=== PATIENT | female | born 1980 | race Two or more races ===

== ENCOUNTER 2022-09-03 16:08 | Emergency (ER) | payer MEDICAID ==
[~2022-09-03] VITALS: Ht 160 cm; Wt 112.0 kg
[2022-09-03 16:30] VITALS: BP 134/78
[2022-09-03 18:01] LABS: Basophils # (auto) 0 10 ^3/uL (0-0.2); Basophils % (auto) 0.3 % (0.0-2.0); Eosinophils # (auto) 0.1 10 ^3/uL (0-0.8); Hemoglobin 10.8 g/dL (12.2-16.2); Lymphocytes # (auto) 1.7 10 ^3/uL (0.4-5.4); Lymphocytes % (auto) 21.9 % (10.0-50.0); Mean Corpuscular Hgb Conc. 30.5 g/dL (32.0-36.0); Neutrophils # (auto) 5.5 10 ^3/uL (1.6-8.6); Red Cell Distribution Width 18.5 % (11.8-14.3)
[2022-09-03 18:03] LABS: Eosinophils % (auto) 1.5 % (0.0-7.0); Hematocrit 35.4 % (36.0-46.0); Mean Corpuscular Hemoglobin 21.9 pg (28.0-32.0); Monocytes # (auto) 0.5 10 ^3/uL (0-1.3); Monocytes % (auto) 6.5 % (0.0-12.0); Neutrophils % (auto) 69.8 % (37.0-80.0); Nucleated Red Blood Cells % 0.1 %; Red Blood Cells 4.92 10^6/uL (4.0-5.20); White Blood Cell 7.8 10^3/uL (4.4-10.8)
[2022-09-03 18:20] LABS: Albumin 3.6 g/dL (3.4-5.0); BUN/Creatinine Ratio 17.3; Calcium 8.5 mg/dL (8.5-10.1); Potassium 3.7 mmol/L (3.5-5.1)
[2022-09-03 18:23] LABS: Bilirubin, Total 0.4 mg/dL (0.2-1.0)
== END 2022-09-04 00:20 | disposition left against medical advice (07) ==
LOC: ER 16:08
DX: N93.8 Other specified abnormal uterine and vaginal bleeding (principal); M54.50 Low back pain, unspecified
CPT/HCPCS: 36415; 80053; 84702; 85025

== ENCOUNTER 2022-10-09 10:43 | Emergency (ER) | payer MEDICAID ==
[~2022-10-09] VITALS: Ht 160 cm; Wt 101.8 kg
[2022-10-09 12:08] VITALS: BP 138/86
[2022-10-09] MEDS ORDERED: ALBUTEROL SULF 2.5 MG/0.5ML(0.5%) NEB SOLN NEB ONE (14:15)
[2022-10-09] MEDS ORDERED: ACETAMINOPHEN 325 MG TAB PO ONE (14:15)
[2022-10-09] MEDS ORDERED: IPRATROPIUM BROM 0.5 MG/2.5ML INH SOL NEB ONE (14:15)
[2022-10-09] MEDS ORDERED: methylPREDNISolone SOD SUCC 125 MG/2 ML VL IM ONE (14:30)
[2022-10-09] MEDS ORDERED: ALBUAER3 IN (15:30)
[2022-10-09] MEDS ORDERED: PRED20TA2 PO (15:30)
== END 2022-10-09 15:37 | disposition home or self-care (01) ==
LOC: ER 10:43
DX: J06.9 Acute upper respiratory infection, unspecified (principal); Z90.49 Acquired absence of other specified parts of digestive tract; Z20.822 Contact with and (suspected) exposure to COVID-19
CPT/HCPCS: 36415; 71046; 87426; 87804; 94640; 96372; 99284; J2930; J7644

== ENCOUNTER 2023-01-24 19:23 | Emergency (ER) | payer MEDICAID ==
[~2023-01-24] VITALS: Ht 160 cm; Wt 104.4 kg
[~2023-01-24 19:23] MED LIST: ALBUAER3 IN; PRED20TA2 PO
[2023-01-24 20:00] LABS: Basophils # (auto) 0 10 ^3/uL (0-0.2); Basophils % (auto) 0.4 % (0.0-2.0); Eosinophils # (auto) 0.2 10 ^3/uL (0-0.8); Eosinophils % (auto) 2.6 % (0.0-7.0); Hematocrit 35.5 % (36.0-46.0); Hemoglobin 11.2 g/dL (12.2-16.2); Lymphocytes % (auto) 31.4 % (10.0-50.0); Mean Corpuscular Hgb Conc. 31.6 g/dL (32.0-36.0); Mean Corpuscular Volume 72.6 fL (80.0-100.0); Monocytes # (auto) 0.4 10 ^3/uL (0-1.3); Monocytes % (auto) 5.8 % (0.0-12.0); Neutrophils # (auto) 3.9 10 ^3/uL (1.6-8.6); Neutrophils % (auto) 59.8 % (37.0-80.0); Nucleated Red Blood Cells % 0.1 %; Red Blood Cells 4.88 10^6/uL (4.0-5.20); Red Cell Distribution Width 17.9 % (11.8-14.3); White Blood Cell 6.5 10^3/uL (4.4-10.8)
[2023-01-24 20:17] LABS: INR 0.96 (0.9-1.15); Partial Thromboplastin Time 26.5 sec (24.6-33.4)
[2023-01-24 20:27] LABS: Albumin 3.7 g/dL (3.4-5.0); BUN/Creatinine Ratio 19.7; Bilirubin, Total 0.5 mg/dL (0.2-1.0); Magnesium 1.9 mg/dL (1.6-2.6); Potassium 3.8 mmol/L (3.5-5.1); Total Protein 7.5 g/dL (6.4-8.2)
[2023-01-25 04:51] VITALS: BP 124/73
== END 2023-01-25 05:55 | disposition home or self-care (01) ==
LOC: ER 19:23
DX: R07.89 Other chest pain (principal); R74.01 Elevation of levels of liver transaminase levels; D64.9 Anemia, unspecified; Z90.49 Acquired absence of other specified parts of digestive tract; Z98.890 Other specified postprocedural states
CPT/HCPCS: 36415; 71046; 80053; 83735; 83880; 84484; 85025; 85610; 85730; 93005

== ENCOUNTER 2024-11-30 08:02 | Inpatient (IN) | payer MEDICAID ==
[~2024-11-30] VITALS: Ht 160 cm; Wt 114.8 kg
[2024-11-30 08:24] LABS: Urine Bacteria None Seen /hpf (None Seen)
[2024-11-30 08:40] LABS: Urine Blood 1+ /uL (Negative); Urine Clarity Clear (Clear); Urine Color Light-Yellow (Yellow); Urine Mucus FEW (None Seen); Urine Protein, UAD Negative (Negative); Urine Specific Gravity 1.023 (1.001-1.035); Urine Squamous Epithelial Cell FEW /hpf (<5); Urine Urobilinogen Normal (Negative); Urine WBC 1 /hpf (0 - 5); Urine pH 6.5 (5.0-9.0)
[2024-11-30 10:42] VITALS: PULSE 71; RESP 16; O2SAT 98
--- NOTE | 2024-11-30 10:50 | ED.PDOC ---
GI ASSESSMENT HPI Comments 44-year-old female with no PMHx presents with a chief complaint of abdominal pain x onset last night with associated nausea. Patient states that her pain is localized to her RLQ, radiates diffusely and to her back, and describes as aching/cramping sensation. Patient reports that she has had this pain before in the past and was evaluated via ultrasound and states that her "IUD was in the endometrial cavity". Patient denies being followed-up with by her PCP. Patient endorses nausea, but denies any active vomiting or diarrhea. Patient denies rectal bleeding, or hematemesis. No other symptoms or modifying factors present at this time. Chief Complaint: Abdominal Pain Time Seen by MD: 10:41 Primary Care Provider: NONE Reviewed Notes: Medications, Allergies Allergies: Coded Allergies: NO KNOWN ALLERGIES (Unverified , 09/03/22) Home Meds Active Scripts Albuterol Sulfate (VENTOLIN MDI) 90 Mcg Ih, 90 MCG IN PRN, #1 INH 0 Refills 2 inhalations every 4 to 6 hours as needed Prov:MAY OLIVIA 10/09/22 Prednisone (Prednisone) 20 Mg Tab, 20 MG PO BID for 5 Days, #10 TAB 0 Refills Prov:MAY OLIVIA 10/09/22 Information Source: Patient Mode of Arrival: Ambulatory Timing: Days Duration: Intermittent Prehospital treatment: None Quality: Aching Vomitus: None Stool: Normal Severity: Moderate Recent: None Recent Hx of: None Pain Location: RLQ Associated sign and symptoms: Nausea, Abdominal Pain Past Medical History PAST MEDICAL HISTORY: Denies Surgical History: Cholecystectomy, BUSINESS SUPPORT SPECIALIST History: Denies all BUSINESS SUPPORT SPECIALIST Hx Family History Family History: Reviewed,noncontributory to illness Social History Smoker: Non-Smoker Alcohol: Denies ETOH Use Drugs: Denies Drug Use Lives In: Home Constitutional: denies: chills, diaphoresis, fatigue, fever, malaise, sweats, weakness, others EENTM: denies: blurred vision, double vision, ear bleeding, ear discharge, ear drainage, ear pain, ear ringing, eye pain, eye redness, hearing loss, mouth pain, mouth swelling, nasal discharge, nose bleeding, nose congestion, nose pain, photophobia, tearing, throat pain, throat swelling, voice changes, others Respiratory: denies: cough, hemoptysis, orthopnea, SOB at rest, shortness of breath, SOB with excertion, stridor, wheezing, others Cardiovascular: denies: chest pain, dizzy spells, diaphoresis, Dyspnea on exertion, edema, irregular heart beat, left arm pain, lightheadedness, palpita tions, PND, syncope, others Gastrointestinal: reports: abdominal pain, nausea; denies: abdomen distended, blood streaked bowels, constipated, diarrhea, dysphagia, difficulty swallowing, hematemesis, melena, poor appetite, poor fluid intake, rectal bleeding, rectal pain, vomiting, others Genitourinary: denies: abnormal vagina bleeding, burning, dyspareunia, dysuria, flank pain, frequency, hematuria, incontinence, pain, , vagina discharge, urgency, others Neurological: denies: dizziness, fainting, headache, left sided numbness, left sided weakness, numbness, paresthesia, pre-existing deficit, right sided numbness, right sided weakness, seizure, speech problems, tingling, tremors, weakness, others Musculoskeletal: denies: back pain, gout, joint pain, joint swelling, muscle pain, muscle stiffness, neck pain, others Integumetry: denies: bruises, change in color, change in hair/nails, dryness, laceration, lesions, lumps, rash, wounds, others Allergic/Immunocompromised: denies: Difficulty Healing, Frequent Infections, Hives, Itching, others Hematologic/Lymphatic: denies: anemia, blood clots, easy bleeding, easy bruising, swollen glands, others Endocrine: denies: excessive hunger, excessive sweating, excessive thirst, excessive urination, flushing, intolerance to cold, intolerance to heat, unexpla ined weight gain, unexplained weight loss, others Psychiatric: denies: anxiety, bipolar disorder, depression, hopeless, panic disorder, schizophrenia, sleepless, suicidal, others All Other Systems: Reviewed and Negative Physical Exam General Appearance: Mild Distress, Obese HEENT: Other (Unremarkable) Neck: Full Range of Motion, Normal Inspection Respiratory: Lungs Clear, No Accessory Muscle Use, No Respiratory Distress, Normal Breath Sounds Cardiovascular: No Edema, No JVD, Regular Rate/Rhythm Breast Exam: Deferred Gastrointestinal: RLQ, Soft, Tenderness Genitalia: Deferred Pelvic: Deferred Rectal: Deferred Extremities: Normal inspection, Normal range of motion, Non-tender, No pedal edema Neurologic: Alert (Oriented x4), Normal Affect, Normal Mood, Other (Ambulatory without difficulty. No gross focal deficit.) Cerebellar Function: NOT DONE Reflexes: NOT DONE Skin: Dry, Normal Color, Warm Lymphatic: NOT DONE Was a procedure done? Was a procedure done?: No GI differential Dx Differential Diagnosis: Appendicitis, Diverticular disease, Ectopic , Gastroenteritis, Inflammatory BD, Ischemic Bowel, Ovarian cyst/torsion, PID, UTI, Food Poisoning, , Impaction, Stress Ulcer, Kidney Stone, Other (Displaced IUD, among others) X-Ray, Labs, Meds, VS Vital Signs Date Time Temp Pulse Resp B/P (MAP) Pulse Ox O2 Delivery O2 Flow Rate FiO2 11/30/24 12:17 85 16 101/60 (74) 91 11/30/24 12:15 85 18 101/60 11/30/24 11:44 78 16 125/78 (94) 92 11/30/24 11:44 78 16 128/75 11/30/24 10:42 71 16 98 Room Air* 0 21 11/30/24 10:42 97.6 64 16 125/71 (89) 96 97.6 11/30/24 09:56 98.3 99 20 131/62 (85) 97 98.3 11/30/24 08:10 98.1 90 18 153/89 (110) 99 Lab Test 11/30/24 11:02 11/30/24 08:08 Range/Units White Blood Count 6.3 4.4-10.8 10^3/uL Red Blood Count 4.68 4.0-5.20 10^6/uL Hemoglobin 11.9 L 12.2-16.2 g/dL Hematocrit 36.6 36.0-46.0 % Mean Corpuscular Volume 78.1 L 80.0-100.0 fL Mean Corpuscular Hemoglobin 25.3 L 28.0-32.0 pg Mean Corpuscular Hemoglobin Concent 32.4 32.0-36.0 g/dL Red Cell Distribution Width 17.1 H 11.8-14.3 % Platelet Count 306 140-450 10^3/uL Mean Platelet Volume 7.7 6.9-10.8 fL Neutrophils (%) (Auto) 64.5 37.0-80.0 % Lymphocytes (%) (Auto) 26.2 10.0-50.0 % Monocytes (%) (Auto) 6.9 0.0-12.0 % Eosinophils (%) (Auto) 2.1 0.0-7.0 % Basophils (%) (Auto) 0.3 0.0-2.0 % Neutrophils # (Auto) 4.1 1.6-8.6 10 ^3/uL Lymphocytes # (Auto) 1.6 0.4-5.4 10 ^3/uL Monocytes # (Auto) 0.4 0-1.3 10 ^3/uL Eosinophils # (Auto) 0.1 0-0.8 10 ^3/uL Basophils # (Auto) 0 0-0.2 10 ^3/uL Nucleated Red Blood Cells 0.1 % Sodium Level 139 136-145 mmol/L Potassium Level 4.6 3.5-5.1 mmol/L Chloride Level 104 98-107 mmol/L Carbon Dioxide Level 27 20-31 mmol/L Anion Gap 8 5-15 Blood Urea Nitrogen 12 9-23 mg/dL Creatinine 0.71 0.550-1.02 mg/dL Glomerular Filtration Rate Calc 108 >90 mL/min BUN/Creatinine Ratio 16.9 10.0-20.0 Serum Glucose 97 74-106 mg/dL Calcium Level 10.0 8.7-10.4 mg/dL Total Bilirubin 0.5 0.2-1.0 mg/dL Aspartate Amino Transferase (AST) 60 H 13-40 U/L Alanine Aminotransferase (ALT) 63 H 7-40 U/L Alkaline Phosphatase 134 H 46-116 U/L Total Protein 7.6 5.7-8.2 g/dL Albumin 4.4 3.2-4.8 g/dL Urine Color Light-yellow Yellow Urine Clarity Clear Clear Urine pH 6.5 5.0-9.0 Urine Specific [place] 1.023 1.001-1.035 Urine Protein Negative Negative Urine Ketones Negative Negative Urine Blood 1+ H Negative /uL Urine Nitrite Negative Negative Urine Bilirubin Negative Negative Urine Urobilinogen Normal Negative mg/dL Urine Leukocyte Esterase Negative Negative /uL Urine RBC 10 0 - 4 /hpf Urine WBC 1 0 - 5 /hpf Urine Squamous Epithelial Cells Few <5 /hpf Urine Bacteria None seen None Seen /hpf Urine Mucus Few None Seen Urine Glucose Normal Normal mg/dL Urine Test Negative Negative Current Medications Medications (Trade) Dose Ordered Sig/Sukumar Route Start Time Stop Time Status Last Admin Morphine Sulfate 4 mg ONCE ONCE IV 11/30/24 10:45 11/30/24 11:04 DC 11/30/24 11:44 Ondansetron HCl (Zofran) 4 mg ONCE ONCE IV 11/30/24 10:45 11/30/24 11:04 DC 11/30/24 11:43 PROCEDURE(s): PELUS - PELVIC REASON: displaced IUD ORDER NUMBER(s): [id number], ACCESSION NUMBER(s): [id number] INDICATION: displaced IUD TECHNIQUE: Multiple real-time grayscale transabdominal sonographic images along with color and duplex Doppler of the uterus and ovaries were obtained. COMPARISON: None FINDINGS: The uterus measures 11.0 x 4.0 x 5.1 cm. The endometrial stripe not well visualized. Intrauterine device visualized in the endometrial cavity. The right ovary is not well visualized due to obscuration from bowel gas. The left ovary measures 3.6 x 3.4 x 2.2 cm. IMPRESSION: Intrauterine device visualized in the endometrial cavity. EDURE(s): ABPL - CT AB PEL WO CON-NO ORAL OR IV REASON: RLQ pain ORDER NUMBER(s): [id number], ACCESSION NUMBER(s): [id number] CLINICAL INFORMATION: 44 years old, Female; right lower quadrant pain. TECHNIQUE: Axial CT images of the abdomen and pelvis were obtained without IV contrast. Coronal and sagittal reformatted images were obtained, reviewed, and stored. Evaluation of the parenchymal organs is limited without IV contrast. Nichole luation of the bowel and mesentery is limited without oral contrast. All CT scans at this medical facility are performed using dose modulation techniques as appropriate to a performed exam including the following: Automated exposure control was utilized; adjustment of the MA and/or KV according to patient size; and use of iterative reconstruction technique. CTDIvol = 24.45 mGy DLP = 1350.07 mGy-cm COMPARISON: None FINDINGS: Lung bases: Lung bases are clear. Liver: Grossly unremarkable in its noncontrast enhanced appearance. No abnormal density or focal lesion identified. Biliary: Cholecystectomy. Spleen: Unremarkable. Pancreas: Grossly unremarkable in its noncontrast enhanced appearance. Adrenal glands: Unremarkable. No mass. Kidneys: No hydronephrosis. No renal or ureteral calculi. Aorta/Vascular: No aneurysm or significant calcification. Retroperitoneum: No mass or lymphadenopathy. Bowel/mesentery: No small bowel obstruction. No free air or free fluid. Appendix is visualized and in greatest thickness of the tip of the appendix. Questionable minimal stranding adjacent to the tip of the appendix (series 2 image 61 correlating with series 601 image 50). Early appendicitis can not be excluded in the appropriate clinical setting. Scattered small colonic diverticula without adjacent inflammatory changes to suggest diverticulitis. Pelvic organs: IUD within the fundal endometrial canal. 0.5 cm cystic structure in the left adnexa, likely ovarian cyst. Bladder: Unremarkable. No mass. Abdominal wall: No mass or hernia. Bones: No acute fracture or suspicious intraosseous lesion. IMPRESSION: 1. Distal tip of the appendix measures at the upper limits of normal in thickness. Questionable minimal stranding adjacent to the tip of the appendix. Early appendicitis can not be excluded in the appropriate clinical setting. 2. Additional findings as detailed above. X-Ray, Labs, Meds, VS Comment 44-year-old female with no significant past medical history complaining of right lower quadrant pain Vitals remarkable for BP 153/89 Exam remarkable for right lower quadrant tenderness to palpation Rhythm strip independently interpreted by me: Sinus rhythm, rate 90, no ectopy. CT abdomen and pelvis IMPRESSION: 1. Distal tip of the appendix measures at the upper limits of normal in thickness. Questionable minimal stranding adjacent to the tip of the appendix. Early appendicitis can not be excluded in the appropriate clinical setting. 2. Additional findings as detailed above. Pelvic ultrasound: IMPRESSION: Intrauterine device visualized in the endometrial cavity. CBC unremarkable. CMP remarkable for mild transaminitis and elevated alkaline phosphatase Urine test negative, UA shows blood, otherwise unremarkable Patient treated with the following in the ED: 1 L 0.9 normal saline IV bolus, morphine 4 mg IV, Zofran 4 mg IV, Zosyn 4.5 g IV On re-evaluation, patient states pain has improved. Vitals are stable. Plan is to admit the patient for IV antibiotics and surgical consultation. Case discussed with Dr. Yeh who agreed to consult. Time of 1ST Reevaluation: 11:08 Reevaluation 1ST: Unchanged Patient Education/Counseling: Diagnosis, Treatment, Prognosis Family Education/Counseling: No Family Present Departure 1 Departure Time of Disposition: 13:40 Impression: Primary Impression: Acute appendicitis Qualified Codes: K35.80 - Unspecified acute appendicitis Disposition: ADMITTED INPATIENT Admit to: Med Surg Condition: Guarded Critical Care Note Critical Care Time?: No Stability Stability form required: No Heart Score Heart Score: Heart Score Response (Comments) Value History N/A 0 EKG N/A 0 Age N/A 0 Risk Factors N/A 0 Troponin N/A 0 Total 0 I personally scribed for VAN PATEL MD ([email or web address]) on 11/30/24 at 10:50. Electronically submitted by Massimo Villalta ([email or web address]). VAN PATEL MD Nov 30, 2024 10:50
--- NOTE | 2024-11-30 11:32 | DVH ---
CLINICAL INFORMATION: 44 years old, Female; right lower quadrant pain. TECHNIQUE: Axial CT images of the abdomen and pelvis were obtained without IV contrast. Coronal and sagittal reformatted images were obtained, reviewed, and stored. Evaluation of the parenchymal organs is limited without IV contrast. Evaluation of the bowel and mesentery is limited without oral contra st. All CT scans at this medical facility are performed using dose modulation techniques as appropria te to a performed exam including the following: Automated exposure control was utilized; adjustment o f the MA and/or KV according to patient size; and use of iterative reconstruction technique. CTDIvol = 24.45 mGy DLP = 1350.07 mGy-cm COMPARISON: None FINDINGS: Lung bases: Lung bases are clear. Liver: Grossly unremarkable in its noncontrast enhanced appearance. No abnormal density or focal les ion identified. Biliary: Cholecystectomy. Spleen: Unremarkable. Pancreas: Grossly unremarkable in its noncontrast enhanced appearance. Adrenal glands: Unremarkable. No mass. Kidneys: No hydronephrosis. No renal or ureteral calculi. Aorta/Vascular: No aneurysm or significant calcification. Retroperitoneum: No mass or lymphadenopathy. Bowel/mesentery: No small bowel obstruction. No free air or free fluid. Appendix is visualized and in greatest thickness of the tip of the appendix. Questionable minimal stranding adjacent to the tip o f the appendix (series 2 image 61 correlating with series 601 image 50). Early appendicitis can not b e excluded in the appropriate clinical setting. Scattered small colonic diverticula without adjacent inflammatory changes to suggest diverticulitis. Pelvic organs: IUD within the fundal endometrial canal. 0.5 cm cystic structure in the left adnexa, l ikely ovarian cyst. Bladder: Unremarkable. No mass. Abdominal wall: No mass or hernia. Bones: No acute fracture or suspicious intraosseous lesion. IMPRESSION: 1. Distal tip of the appendix measures at the upper limits of normal in thickness. Questionable mini mal stranding adjacent to the tip of the appendix. Early appendicitis can not be excluded in the jerson ropriate clinical setting. 2. Additional findings as detailed above.
[2024-11-30] MEDS: ONDANSETRON HCL 4 MG/2 ML VIAL IV ONE (11:43)
[2024-11-30] MEDS: MORPHINE SULFATE 4 MG/ML SYR/VIAL IV ONE (11:44)
[2024-11-30 11:46] LABS: Basophils # (auto) 0 10 ^3/uL (0-0.2); Eosinophils # (auto) 0.1 10 ^3/uL (0-0.8); Eosinophils % (auto) 2.1 % (0.0-7.0); Hemoglobin 11.9 g/dL (12.2-16.2); Mean Corpuscular Hemoglobin 25.3 pg (28.0-32.0); Mean Corpuscular Hgb Conc. 32.4 g/dL (32.0-36.0); Monocytes # (auto) 0.4 10 ^3/uL (0-1.3)
[2024-11-30 11:49] LABS: Basophils % (auto) 0.3 % (0.0-2.0); Hematocrit 36.6 % (36.0-46.0); Lymphocytes # (auto) 1.6 10 ^3/uL (0.4-5.4); Lymphocytes % (auto) 26.2 % (10.0-50.0); Mean Corpuscular Volume 78.1 fL (80.0-100.0); Monocytes % (auto) 6.9 % (0.0-12.0); Neutrophils # (auto) 4.1 10 ^3/uL (1.6-8.6); Neutrophils % (auto) 64.5 % (37.0-80.0); Nucleated Red Blood Cells % 0.1 %; Platelet Count (auto) 306 10^3/uL (140-450); Red Blood Cells 4.68 10^6/uL (4.0-5.20); Red Cell Distribution Width 17.1 % (11.8-14.3); White Blood Cell 6.3 10^3/uL (4.4-10.8)
--- NOTE | 2024-11-30 12:02 | DVH ---
INDICATION: displaced IUD TECHNIQUE: Multiple real-time grayscale transabdominal sonographic images along with color and duplex Doppler of the uterus and ovaries were obtained. COMPARISON: None FINDINGS: The uterus measures 11.0 x 4.0 x 5.1 cm. The endometrial stripe not well visualized. Intrau terine device visualized in the endometrial cavity. The right ovary is not well visualized due to obscuration from bowel gas. The left ovary measures 3.6 x 3.4 x 2.2 cm. IMPRESSION: Intrauterine device visualized in the endometrial cavity.
[2024-11-30 12:07] LABS: Albumin 4.4 g/dL (3.2-4.8); Anion Gap 8 (5-15); BUN/Creatinine Ratio 16.9 (10.0-20.0); Blood Urea Nitrogen 12 mg/dL (9-23); Carbon Dioxide 27 mmol/L (20-31); Chloride 104 mmol/L (98-107); Glucose 97 mg/dL (74-106); Potassium 4.6 mmol/L (3.5-5.1); Sodium 139 mmol/L (136-145)
[2024-11-30 12:08] LABS: Bilirubin, Total 0.5 mg/dL (0.2-1.0); Total Protein 7.6 g/dL (5.7-8.2)
[2024-11-30 12:12] LABS: Alanine Aminotransferase 63 U/L (7-40); Alkaline Phosphatase 134 U/L (46-116); Aspartate Aminotransferase 60 U/L (13-40)
[2024-11-30] MEDS: PIPERACILLIN-TAZO 4.5GM 100 ML IV ONE (14:03)
[2024-11-30] MEDS: SODIUM CHLORIDE 0.9% 1,000 ML IV ONE ×2 (14:04→19:03)
--- NOTE | 2024-11-30 16:29 | DVHCONRES ---
Date Seen: Nov 30, 2024 Resident Creating Document: ELOINA ROLLINS Jr., MD Referring Physician ER Reason for Consultation Abdominal pain History of Present Illness 44-year-old female with no PMHx presents with a chief complaint of abdominal pain x onset last night with associated nausea. Patient states that her pain is localized to her RLQ, radiates diffusely and to her back, and describes as aching/cramping sensation. Patient reports that she has had this pain before in the past and was evaluated via ultrasound and states that her "IUD was in the endometrial cavity". Patient endorses nausea, but denies any active vomiting or diarrhea. Patient denies rectal bleeding, or hematemesis. No other symptoms or modifying factors present at this time. Patient states she has had a bowel movement yesterday. No urinary tract symptoms. Currently is hungry and thirsty Past Medical History Denies Past Surgical History Lap choly, tubal ligation, x2 Social History Nonsmoker nondrinker no IV drug abuse Allergies: Coded Allergies: NO KNOWN ALLERGIES (Unverified , 09/03/22) Home Meds Active Scripts Albuterol Sulfate (VENTOLIN MDI) 90 Mcg Ih, 90 MCG IN PRN, #1 INH 0 Refills 2 inhalations every 4 to 6 hours as needed Prov:MAY OLIVIA 10/09/22 Prednisone (Prednisone) 20 Mg Tab, 20 MG PO BID for 5 Days, #10 TAB 0 Refills Prov:MAY OLIVIA 10/09/22 Review of Systems All systems reviewed otherwise negative other than what was in the HPI. Vital Signs Vital Signs Date Time Temp Pulse Resp B/P (MAP) Pulse Ox O2 Delivery O2 Flow Rate FiO2 11/30/24 16:23 71 16 123/71 (88) 97 11/30/24 10:42 Room Air* 0 21 11/30/24 10:42 97.6 97.6 Physical Exam Head eyes ears nose and throat exam eyes are nonicteric conjunctiva is pink neck was supple no JVD no lymphadenopathy no carotid bruits lungs are clear to auscultation heart was regular rate and rhythm under was soft mild tenderness in the right and left lower quadrants. No rebound. with no pulsatile abdominal masses or bruits lower extremities palpable femoral and pedal pulses no edema. No CVA tenderness Labs/Diagnostic Data Labs Test 11/30/24 11:02 11/30/24 08:08 Range/Units White Blood Count 6.3 4.4-10.8 10^3/uL Red Blood Count 4.68 4.0-5.20 10^6/uL Hemoglobin 11.9 L 12.2-16.2 g/dL Hematocrit 36.6 36.0-46.0 % Mean Corpuscular Volume 78.1 L 80.0-100.0 fL Mean Corpuscular Hemoglobin 25.3 L 28.0-32.0 pg Mean Corpuscular Hemoglobin Concent 32.4 32.0-36.0 g/dL Red Cell Distribution Width 17.1 H 11.8-14.3 % Platelet Count 306 140-450 10^3/uL Mean Platelet Volume 7.7 6.9-10.8 fL Neutrophils (%) (Auto) 64.5 37.0-80.0 % Lymphocytes (%) (Auto) 26.2 10.0-50.0 % Monocytes (%) (Auto) 6.9 0.0-12.0 % Eosinophils (%) (Auto) 2.1 0.0-7.0 % Basophils (%) (Auto) 0.3 0.0-2.0 % Neutrophils # (Auto) 4.1 1.6-8.6 10 ^3/uL Lymphocytes # (Auto) 1.6 0.4-5.4 10 ^3/uL Monocytes # (Auto) 0.4 0-1.3 10 ^3/uL Eosinophils # (Auto) 0.1 0-0.8 10 ^3/uL Basophils # (Auto) 0 0-0.2 10 ^3/uL Nucleated Red Blood Cells 0.1 % Sodium Level 139 136-145 mmol/L Potassium Level 4.6 3.5-5.1 mmol/L Chloride Level 104 98-107 mmol/L Carbon Dioxide Level 27 20-31 mmol/L Anion Gap 8 5-15 Blood Urea Nitrogen 12 9-23 mg/dL Creatinine 0.71 0.550-1.02 mg/dL Glomerular Filtration Rate Calc 108 >90 mL/min BUN/Creatinine Ratio 16.9 10.0-20.0 Serum Glucose 97 74-106 mg/dL Calcium Level 10.0 8.7-10.4 mg/dL Total Bilirubin 0.5 0.2-1.0 mg/dL Aspartate Amino Transferase (AST) 60 H 13-40 U/L Alanine Aminotransferase (ALT) 63 H 7-40 U/L Alkaline Phosphatase 134 H 46-116 U/L Total Protein 7.6 5.7-8.2 g/dL Albumin 4.4 3.2-4.8 g/dL Urine Color Light-yellow Yellow Urine Clarity Clear Clear Urine pH 6.5 5.0-9.0 Urine Specific [place] 1.023 1.001-1.035 Urine Protein Negative Negative Urine Ketones Negative Negative Urine Blood 1+ H Negative /uL Urine Nitrite Negative Negative Urine Bilirubin Negative Negative Urine Urobilinogen Normal Negative mg/dL Urine Leukocyte Esterase Negative Negative /uL Urine RBC 10 0 - 4 /hpf Urine WBC 1 0 - 5 /hpf Urine Squamous Epithelial Cells Few <5 /hpf Urine Bacteria None seen None Seen /hpf Urine Mucus Few None Seen Urine Glucose Normal Normal mg/dL Urine Test Negative Negative PROCEDURE(s): PELUS - PELVIC REASON: displaced IUD ORDER NUMBER(s): [id number], ACCESSION NUMBER(s): [id number] INDICATION: displaced IUD TECHNIQUE: Multiple real-time grayscale transabdominal sonographic images along with color and duplex Doppler of the uterus and ovaries were obtained. COMPARISON: None FINDINGS: The uterus measures 11.0 x 4.0 x 5.1 cm. The endometrial stripe not well visualized. Intrauterine device visualized in the endometrial cavity. The right ovary is not well visualized due to obscuration from bowel gas. The left ovary measures 3.6 x 3.4 x 2.2 cm. IMPRESSION: Intrauterine device visualized in the endometrial cavity. PROCEDURE(s): ABPL - CT AB PEL WO CON-NO ORAL OR IV REASON: RLQ pain ORDER NUMBER(s): [id number], ACCESSION NUMBER(s): [id number] CLINICAL INFORMATION: 44 years old, Female; right lower quadrant pain. TECHNIQUE: Axial CT images of the abdomen and pelvis were obtained without IV contrast. Coronal and sagittal reformatted images were obtained, reviewed, and stored. Evaluation of the parenchymal organs is limited without IV contrast. Evaluation of the bowel and mesentery is limited without oral contrast. All CT scans at this medical facility are performed using dose modulation techniques as appropriate to a performed exam including the following: Automated exposure control was utilized; adjustment of the MA and/or KV according to patient size; and use of iterative reconstruction technique. CTDIvol = 24.45 mGy DLP = 1350.07 mGy-cm COMPARISON: None FINDINGS: Lung bases: Lung bases are clear. Liver: Grossly unremarkable in its noncontrast enhanced appearance. No abnormal density or focal lesion identified. Biliary: Cholecystectomy. Spleen: Unremarkable. Pancreas: Grossly unremarkable in its noncontrast enhanced appearance. Adrenal glands: Unremarkable. No mass. Kidneys: No hydronephrosis. No renal or ureteral calculi. Aorta/Vascular: No aneurysm or significant calcification. Retroperitoneum: No mass or lymphadenopathy. Bowel/mesentery: No small bowel obstruction. No free air or free fluid. Appendix is visualized and in greatest thickness of the tip of the appendix. Questionable minimal stranding adjacent to the tip of the appendix (series 2 image 61 correlating with series 601 image 50). Early appendicitis can not be excluded in the appropriate clinical setting. Scattered small colonic divertic ifeoma without adjacent inflammatory changes to suggest diverticulitis. Pelvic organs: IUD within the fundal endometrial canal. 0.5 cm cystic structure in the left adnexa, likely ovarian cyst. Bladder: Unremarkable. No mass. Abdominal wall: No mass or hernia. Bones: No acute fracture or suspicious intraosseous lesion. IMPRESSION: 1. Distal tip of the appendix measures at the upper limits of normal in thickness. Questionable minimal stranding adjacent to the tip of the appendix. Early appendicitis can not be excluded in the appropriate clinical setting. 2. Additional findings as detailed above. Assessment 44-year-old female with 24 hour history of abdominal pain. A normal white count and no definitive signs of appendicitis based on CT possible early appendicitis. Recommend observation, fluid resuscitation, re-evaluation in the morning. Plan discussed with: Patient ELOINA ROLLINS Jr., MD Nov 30, 2024 16:29
[2024-11-30 17:28] VITALS: BP 113/62; PULSE 66; RESP 18; TEMP 97.6; O2SAT 95
[2024-11-30] MEDS ORDERED: LATA0.008 EACHEYE (17:43)
[2024-11-30] MEDS ORDERED: ONDANSETRON HCL 4 MG/2 ML VIAL IV PRN (18:45)
[2024-11-30 20:45] VITALS: BP 144/95; PULSE 79; RESP 16; TEMP 98.7; O2SAT 99
[2024-11-30 21:00] VITALS: BP 141/94; PULSE 73; RESP 16; TEMP 98.5; O2SAT 99
[2024-11-30] MEDS: PIPERACILLIN-TAZOB 3.375GM 100 ML IV SCH (21:13)
[2024-11-30] MEDS: MORPHINE SULFATE INJ 2 MG/ml SYRG IV PRN (22:44)
[2024-12-01] VITALS (7 sets, daily range): BP systolic 103–108; BP diastolic 58–68; PULSE 67–88; RESP 13–18; TEMP 97.4–98.7; O2SAT 96–99
--- NOTE | 2024-12-01 00:20 | DVHHP2 ---
History of Present Illness Reason for Visit: Abdominal pain History of Present Illness 44 year old female presents for evaluation of abdominal pain. Patient presents with a two day history of sharp right lower quadrant abdominal pain that radiates to her mid abdomen and to her back. She reports episodes of nausea and chills. Currently rates the pain at 5/10 intensity. No cardiac or respiratory complaints reported. Past Medical History Denies Past Surgical History and cholecystectomy Family History Noncontributory Smoke: No ALCOHOL: none Drugs: None Lives: with Family Review of Systems Review of Systems Review of systems are currently negative otherwise addressed in HPI. Allergies: Coded Allergies: NO KNOWN ALLERGIES (Unverified , 09/03/22) Medications Current Medications Medications Dose Ordered Sig/Sukumar Route Start Time Stop Time Status Last Admin Dose Admin Piperacillin Sod/ Tazobactam Sod 100 ml @ 25 mls/hr Q8HR IV 11/30/24 22:00 11/30/24 21:13 25 MLS/HR Ondansetron HCl 4 mg Q4HP PRN IV 11/30/24 18:45 Morphine Sulfate 2 mg Q4HPRN PRN IV 11/30/24 18:45 11/30/24 22:44 2 MG Exam Vital Signs Vital Signs Date Time Temp Pulse Resp B/P (MAP) Pulse Ox O2 Delivery O2 Flow Rate FiO2 11/30/24 22:44 79 16 144/95 11/30/24 21:00 98.5 99 98.5 11/30/24 10:42 Room Air* 0 21 Exam Gen: 44-year-old female in mild distress, morbidly obese Skin: Warm, dry, normal color and texture, no rash. HEENT: Normocephalic atraumatic, mucous membranes moist and pink. Neck: Cervical and supraclavicular nodes normal without enlargement, trachea is midline, thyroid gland is normal without masses. Pulmonary: Clear to auscultation and percussion bilaterally. Cardiac: Regular rate and rhythm. No murmur Abdomen: Soft, right lower quadrant tenderness, nondistended, bowel sounds present all 4 quadrants, no guarding, no rigidity, no organomegaly. Extremities: No cyanosis, clubbing, no edema Neuro: Cranial nerves II through XII grossly intact, normal affect and speech, no focal motor deficits. Labs/Xrays ORDERING PHYSICIAN: VAN PATEL MD PROCEDURE(s): ABPL - CT AB PEL WO CON-NO ORAL OR IV REASON: RLQ pain ORDER NUMBER(s): [id number], ACCESSION NUMBER(s): [id number] CLINICAL INFORMATION: 44 years old, Female; right lower quadrant pain. TECHNIQUE: Axial CT images of the abdomen and pelvis were obtained without IV contrast. Coronal and sagittal reformatted images were obtained, reviewed, and stored. Evaluation of the parenchymal organs is limited without IV contrast. Evaluation of the bowel and mesentery is limited without oral contrast. All CT scans at this medical facility are performed using dose modulation techniques as appropriate to a performed exam including the following: Automated exposure control was utilized; adjustment of the MA and/or KV according to patient size; and use of iterative reconstruction technique. CTDIvol = 24.45 mGy DLP = 1350.07 mGy-cm COMPARISON: None FINDINGS: Lung bases: Lung bases are clear. Liver: Grossly unremarkable in its noncontrast enhanced appearance. No abnormal density or focal lesion identified. Biliary: Cholecystectomy. Spleen: Unremarkable. Pancreas: Grossly unremarkable in its noncontrast enhanced appearance. Adrenal glands: Unremarkable. No mass. Kidneys: No hydronephrosis. No renal or ureteral calculi. Aorta/Vascular: No aneurysm or significant calcification. Retroperitoneum: No mass or lymphadenopathy. Bowel/mesentery: No small bowel obstruction. No free air or free fluid. Appendix is visualized and in greatest thickness of the tip of the appendix. Questionable minimal stranding adjacent to the tip of the appendix (series 2 image 61 correlating with series 601 image 50). Early appendicitis can not be excluded in the appropriate clinical setting. Scattered small colonic diverticula without adjacent inflammatory changes to suggest diverticulitis. Pelvic organs: IUD within the fundal endometrial canal. 0.5 cm cystic structure in the left adnexa, likely ovarian cyst. Bladder: Unremarkable. No mass. Abdominal wall: No mass or hernia. Bones: No acute fracture or suspicious intraosseous lesion. IMPRESSION: 1. Distal tip of the appendix measures at the upper limits of normal in thickness. Questionable minimal stranding adjacent to the tip of the appendix. Early appendicitis can not be excluded in the appropriate clinical setting. 2. Additional findings as detailed above. RING PHYSICIAN: VAN PATEL MD PROCEDURE(s): PELUS - PELVIC REASON: displaced IUD ORDER NUMBER(s): [id number], ACCESSION NUMBER(s): [id number] INDICATION: displaced IUD TECHNIQUE: Multiple real-time grayscale transabdominal sonographic images along with color and duplex Doppler of the uterus and ovaries were obtained. COMPARISON: None FINDINGS: The uterus measures 11.0 x 4.0 x 5.1 cm. The endometrial stripe not well visualized. Intrauterine device visualized in the endometrial cavity. The right ovary is not well visualized due to obscuration from bowel gas. The left ovary measures 3.6 x 3.4 x 2.2 cm. IMPRESSION: Intrauterine device visualized in the endometrial cavity. Labs Test 11/30/24 11:02 11/30/24 08:08 Range/Units White Blood Count 6.3 4.4-10.8 10^3/uL Red Blood Count 4.68 4.0-5.20 10^6/uL Hemoglobin 11.9 L 12.2-16.2 g/dL Hematocrit 36.6 36.0-46.0 % Mean Corpuscular Volume 78.1 L 80.0-100.0 fL Mean Corpuscular Hemoglobin 25.3 L 28.0-32.0 pg Mean Corpuscular Hemoglobin Concent 32.4 32.0-36.0 g/dL Red Cell Distribution Width 17.1 H 11.8-14.3 % Platelet Count 306 140-450 10^3/uL Mean Platelet Volume 7.7 6.9-10.8 fL Neutrophils (%) (Auto) 64.5 37.0-80.0 % Lymphocytes (%) (Auto) 26.2 10.0-50.0 % Monocytes (%) (Auto) 6.9 0.0-12.0 % Eosinophils (%) (Auto) 2.1 0.0-7.0 % Basophils (%) (Auto) 0.3 0.0-2.0 % Neutrophils # (Auto) 4.1 1.6-8.6 10 ^3/uL Lymphocytes # (Auto) 1.6 0.4-5.4 10 ^3/uL Monocytes # (Auto) 0.4 0-1.3 10 ^3/uL Eosinophils # (Auto) 0.1 0-0.8 10 ^3/uL Basophils # (Auto) 0 0-0.2 10 ^3/uL Nucleated Red Blood Cells 0.1 % Sodium Level 139 136-145 mmol/L Potassium Level 4.6 3.5-5.1 mmol/L Chloride Level 104 98-107 mmol/L Carbon Dioxide Level 27 20-31 mmol/L Anion Gap 8 5-15 Blood Urea Nitrogen 12 9-23 mg/dL Creatinine 0.71 0.550-1.02 mg/dL Glomerular Filtration Rate Calc 108 >90 mL/min BUN/Creatinine Ratio 16.9 10.0-20.0 Serum Glucose 97 74-106 mg/dL Calcium Level 10.0 8.7-10.4 mg/dL Total Bilirubin 0.5 0.2-1.0 mg/dL Aspartate Amino Transferase (AST) 60 H 13-40 U/L Alanine Aminotransferase (ALT) 63 H 7-40 U/L Alkaline Phosphatase 134 H 46-116 U/L Total Protein 7.6 5.7-8.2 g/dL Albumin 4.4 3.2-4.8 g/dL Urine Color Light-yellow Yellow Urine Clarity Clear Clear Urine pH 6.5 5.0-9.0 Urine Specific [place] 1.023 1.001-1.035 Urine Protein Negative Negative Urine Ketones Negative Negative Urine Blood 1+ H Negative /uL Urine Nitrite Negative Negative Urine Bilirubin Negative Negative Urine Urobilinogen Normal Negative mg/dL Urine Leukocyte Esterase Negative Negative /uL Urine RBC 10 0 - 4 /hpf Urine WBC 1 0 - 5 /hpf Urine Squamous Epithelial Cells Few <5 /hpf Urine Bacteria None seen None Seen /hpf Urine Mucus Few None Seen Urine Glucose Normal Normal mg/dL Urine Test Negative Negative Assessment/Plan Assessment/Plan Assessment Acute abdominal pain Acute appendicitis Morbid obesity Plan Admit the patient to [facility] to the hospitalist [place] Surgical consultation NPO Maintenance IV fluids Pain management Continue treatment per orders. Plan discussed with: Patient My Orders Orders - PEPITO NAVARRO AGACNP Procedure Category Date Status Time Piperacillin-Tazob PHA 11/30/24 In Process 3.375gm (Zosyn 3.375g 22:00 Basic Metabolic Panel LAB 12/01/24 Logged 04:00 Admit ADMIT 11/30/24 Transmitted 18:43 Ondansetron Hcl PHA 11/30/24 In Process (Zofran) 18:45 Complete Blood Count LAB 12/01/24 Logged 04:00 Condition: Stable BLANQUITA 11/30/24 In Process 18:43 Bedrest With Bathroom BLANQUITA 11/30/24 In Process Privileg 18:43 Morphine Sulfate PHA 11/30/24 In Process Injection 18:45 Sodium Chloride 0.9% PHA 11/30/24 In Process 18:45 PTPTT LAB 12/01/24 Verified 04:00 Date of Service: Nov 30, 2024 Billing Provider: PEPITO NAVARRO Common Visit Codes: [id number] INP/OBS CARE (HIGH) PEPITO NAVARRO Dec 01, 2024 00:20
[2024-12-01 07:00] LABS: Basophils # (auto) 0 10 ^3/uL (0-0.2); Eosinophils # (auto) 0.2 10 ^3/uL (0-0.8); Hemoglobin 10.4 g/dL (12.2-16.2); Monocytes # (auto) 0.4 10 ^3/uL (0-1.3); White Blood Cell 5.1 10^3/uL (4.4-10.8)
[2024-12-01 07:04] LABS: Basophils % (auto) 0.5 % (0.0-2.0); Eosinophils % (auto) 3.3 % (0.0-7.0); Hematocrit 32.1 % (36.0-46.0); Lymphocytes # (auto) 1.6 10 ^3/uL (0.4-5.4); Lymphocytes % (auto) 31.6 % (10.0-50.0); Mean Corpuscular Hemoglobin 25.3 pg (28.0-32.0); Mean Corpuscular Hgb Conc. 32.3 g/dL (32.0-36.0); Mean Corpuscular Volume 78.4 fL (80.0-100.0); Monocytes % (auto) 7.6 % (0.0-12.0); Neutrophils # (auto) 2.9 10 ^3/uL (1.6-8.6); Platelet Count (auto) 262 10^3/uL (140-450); Red Blood Cells 4.09 10^6/uL (4.0-5.20); Red Cell Distribution Width 16.8 % (11.8-14.3)
[2024-12-01 07:06] LABS: Potassium 3.9 mmol/L (3.5-5.1); Sodium 141 mmol/L (136-145)
[2024-12-01 07:07] LABS: Anion Gap 5 (5-15); Carbon Dioxide 28 mmol/L (20-31)
[2024-12-01 07:08] LABS: Calcium 8.8 mg/dL (8.7-10.4)
[2024-12-01 07:12] LABS: BUN/Creatinine Ratio 14.7 (10.0-20.0); Blood Urea Nitrogen 11 mg/dL (9-23); Glucose 92 mg/dL (74-106)
[2024-12-01 07:16] LABS: Chloride 108 mmol/L (98-107)
[2024-12-01 07:18] LABS: Partial Thromboplastin Time 27.1 SEC (24.5-34.5); Prothrombin Time 10.6 sec (9.3-11.8)
[2024-12-01] MEDS ORDERED: MEPERIDINE HCL (25 MG/ML) 1ML VIAL ONE (10:00)
[2024-12-01] MEDS ORDERED: fentaNYL CITRATE 100 MCG/2 ML VL ONE (10:01)
[2024-12-01] MEDS ORDERED: MIDAZOLAM HCL 2MG/2ML 2ml VIAL (1mg/ml) ONE (10:01)
[2024-12-01] MEDS ORDERED: PROPOFOL 10 MG/ML 20 ML IV ONE (11:07)
[2024-12-01] MEDS ORDERED: DexAMETHasone SOD PHOS 10MG/1ML VIAL INJ ONE (11:07)
--- NOTE | 2024-12-01 11:13 | DVHPN2 ---
Progress Note Date Seen: Dec 01, 2024 Medical Necessity Reason Pt with a Central, PICC or Fol: No Objective vital signs Vital Sign Date Time Temp Pulse Resp B/P (MAP) Pulse Ox O2 Delivery O2 Flow Rate FiO2 12/01/24 08:56 98.7 67 17 106/58 (74) 97 98.7 11/30/24 10:42 Room Air* 0 21 Total Intake and Output 11/30/24 11/30/24 12/01/24 15:00 23:00 07:00 Intake Total 1000 ml 100 ml Output Total 0 ml Balance 1000 ml 100 ml medications Current Medications Medications Dose Ordered Sig/Sukumar Route Start Time Stop Time Status Last Admin Dose Admin Piperacillin Sod/ Tazobactam Sod 100 ml @ 25 mls/hr Q8HR IV 11/30/24 22:00 12/01/24 05:28 25 MLS/HR Ondansetron HCl 4 mg Q4HP PRN IV 11/30/24 18:45 Morphine Sulfate 2 mg Q4HPRN PRN IV 11/30/24 18:45 11/30/24 22:44 2 MG laboratory and microbiology Laboratory Tests 12/01/24 06:13 Test 12/01/24 06:13 Range/Units Serum Glucose 92 74-106 mg/dL Problem List/Assessment/Plan Problem List/Assessment/Plan 12/01/24 still c/o pain, has exquisite tenderness at c Domenic's point, rebound tenderness, CT indicates appendicitis, laparoscopic possibly open appendectomy, risks and complications explained in detail, explained to that i am NOT 100% sure that she has appendicitis, but I do not want to risk rupture of the appendix PAD [id number] (EXP: 10/2025 BOVIE: [id number] OR 1 PAD [id number] (EXP: 10/2025 BOVIE: [id number] Plan discussed with: Patient, Spouse JEISON MONAE MD Dec 01, 2024 11:13
[2024-12-01] MEDS ORDERED: SUGAMMADEX 200mg/2ml Vial (100MG/ML) IV ONE (11:32)
[2024-12-01] MEDS: LIDOCAINE W/ EPINEPHRINE 1% 20ML VIAL ONE (11:45)
[2024-12-01] MEDS: BUPIVACAINE 0.5% P/F INJ 10 ML VIAL ONE (11:45)
--- NOTE | 2024-12-01 11:57 | DVHPN2 ---
Subjective For Lap Appy. Changes from previous H/P or p: No Changes Objective Vitals Vital Signs Date Time Temp Pulse Resp B/P (MAP) Pulse Ox O2 Delivery O2 Flow Rate FiO2 12/01/24 08:56 98.7 67 17 106/58 (74) 97 98.7 11/30/24 10:42 Room Air* 0 21 Intake/Output Intake and Output 12/01/24 07:00 Intake Total 1100 ml Output Total 0 ml Balance 1100 ml Intake Oral 0 ml IV Total 1100 ml Output Urine Total 0 ml Medications Current Medications Medications Dose Ordered Sig/Sukumar Route Start Time Stop Time Status Last Admin Dose Admin Piperacillin Sod/ Tazobactam Sod 100 ml @ 25 mls/hr Q8HR IV 11/30/24 22:00 12/01/24 05:28 25 MLS/HR Ondansetron HCl 4 mg Q4HP PRN IV 11/30/24 18:45 Morphine Sulfate 2 mg Q4HPRN PRN IV 11/30/24 18:45 11/30/24 22:44 2 MG Laboratory Results Laboratory Tests 12/01/24 06:13 Chemistry Test 12/01/24 06:13 Calcium Level 8.8 mg/dL (8.7-10.4) Coagulation Test 12/01/24 06:13 Prothrombin Time 10.6 sec (9.3-11.8) Prothrombin Time INR 1.00 (0.9-1.15) Activated Partial Thromboplast Time 27.1 SEC (24.5-34.5) Urinalysis Test 11/30/24 08:08 Urine Color Light-yellow (Yellow) Urine Clarity Clear (Clear) Urine pH 6.5 (5.0-9.0) Urine Specific [place] 1.023 (1.001-1.035) Urine Protein Negative (Negative) Urine Ketones Negative (Negative) Urine Blood 1+ /uL (Negative) H Urine Nitrite Negative (Negative) Urine Bilirubin Negative (Negative) Urine Urobilinogen Normal mg/dL (Negative) Urine Leukocyte Esterase Negative /uL (Negative) Urine RBC 10 /hpf (0 - 4) Urine WBC 1 /hpf (0 - 5) Urine Squamous Epithelial Cells Few /hpf (<5) Urine Bacteria None seen /hpf (None Seen) Urine Mucus Few (None Seen) Urine Glucose Normal mg/dL (Normal) Urine Test Negative (Negative) Assessment/Plan Assessment/Plan Acute abdominal pain due to Acute appendicitis - Surgical Cx, cont Abx Morbid obesity- [employer]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
[2024-12-01] MEDS ORDERED: HYDROmorphone HCL 2 MG/ML VL/or syr ONE (12:05)
--- NOTE | 2024-12-01 12:09 | DVHOP ---
DATE OF SURGERY: 12/01/2024 PREOPERATIVE DIAGNOSIS: Appendicitis. POSTOPERATIVE DIAGNOSIS: Appendicitis. SURGEON: Magnus Yeh MD CASH POSTING SPECIALIST: Cj Cannon. ANESTHESIA: General endotracheal. ANESTHESIOLOGIST: Dr. Roque. PROCEDURES: Laparoscopy, laparoscopic appendectomy. DESCRIPTION OF PROCEDURE: Under general endotracheal anesthesia, with the patient's skin prepped and draped, an infraumbilical incision was made and Veress needle inserted into the abdominal cavity in order to establish pneumoperitoneum to 15 mmHg pressure by insufflation with carbon dioxide. With the abdomen fully distended, the needle was removed and replaced with a 5 mm trocar port through which a 0-degree viewing laparoscope was inserted and under direct vision, additional 5 and 10 mm ports inserted into the abdominal cavity. Laparoscopy was performed, which was hampered by the patient's morbid obesity, however, no obvious unexpected pathology in the viscera was encountered other than a densely adherent uterus adhering to the anterior abdominal wall in the right lower quadrant. An attempt at the uterus from the abdominal wall was unsuccessful, which was suggestive of possibly an extruding IUD causing the adhesion of the uterus. For this reason, I had requested a VACUUM EVAPORATION OPERATOR consult postoperatively. I did not call for a VACUUM EVAPORATION OPERATOR surgeon intraoperatively because the patient was not consented for hysteroscopy and did not have a vaginal prep. Subsequently, the appendix was found in a retrocecal position with the distal half of the appendix obviously inflamed. Due to the patient's obesity, it was difficult to manipulate and place the appendix into an accessible position. However, with meticulous dissection, I was able to remove the appendix from the retrocecal position, placed it on tension and traced to the confluence with the cecum. At the confluence with the cecum, the very fatty mesoappendix and the appendix were divided at the base with an Endo-DARRYL stapler. The fully mobilized appendix was then removed from the peritoneal cavity by placement in a specimen extraction bag removing it through the 10 mm port site. At this point, the right lower quadrant was irrigated, irrigant was aspirated. Hemostasis was meticulously inspected and accomplished. The patient had no bleeding at the time of termination of the procedure, either from the appendicectomy site, the port sites or from the site of attempted lysis of the adhesion of the uterus to the abdominal wall. The abdomen was again irrigated, irrigant was aspirated. Instrumentation was withdrawn. Pneumoperitoneum was evacuated and then wounds approximated using Monocryl sutures and the wounds were approximated using metallic skin kimmy. The patient remained stable throughout the procedure, left the operating room following an accurate needle and sponge count. The patient's daughter was thoroughly informed by phone at [phone]. Subsequent to the phone call, I also called Dr. Charlton to render a gynecologic opinion. MD JOSH Catalan/EMILIANO TID: [id number] RECEIPT: [id number]
[2024-12-01] MEDS: HYDROmorphone HCL 2 MG/ML VL/or syr IV PRN (12:10)
[2024-12-01] MEDS ORDERED: MIDAZOLAM HCL 2MG/2ML 2ml VIAL (1mg/ml) IV PRN (12:15)
[2024-12-01] MEDS ORDERED: hydrALAZINE HCL 20 MG/ML VL IV PRN (12:15)
[2024-12-01] MEDS ORDERED: ePHEDrine SULFATE 50 MG/ML AMP IV PRN (12:15)
[2024-12-01] MEDS ORDERED: MORPHINE SULFATE 4 MG/ML SYR/VIAL IV PRN (12:15)
[2024-12-01] MEDS ORDERED: KETOROLAC TROMETH 30 MG/ML 1ML VIAL IV ONE (12:15)
[2024-12-01] MEDS ORDERED: HYDROMORPHONE HCL 1 MG/ML INJ IV PRN (12:45)
[2024-12-01] MEDS ORDERED: ONDANSETRON HCL 4 MG/2 ML VIAL IV PRN (12:45)
[2024-12-01] MEDS: D5W/SOD CHL 0.45%/KCL 20MEQ 1,000 ML IV SCH (14:40)
[2024-12-01] MEDS: PANTOPRAZOLE 40 MG/10 ML VIAL INJ IV SCH (14:40)
--- NOTE | 2024-12-01 15:17 | DVHINCON2 ---
DATE OF CONSULTATION: 12/01/2024 REASON FOR CONSULTATION: Pelvic adhesions and IUD placement. HISTORY OF PRESENT ILLNESS: The patient is a 44-year-old 4, para 4, admitted for acute appendicitis. The patient underwent appendectomy on 12/01/2024. Ultrasound revealed an 11-week size uterus with IUD in endometrial cavity per ultrasound findings. The patient denies having any abnormal bleeding. She states she has had two section and tubal ligation. Her last Pap was recent. Dr. Yeh did the appendectomy and found the patient to have a lot of adhesions. Uterus was stuck to the lateral aspect of the pelvis, pretty densely adherent. She requested this consultation for IUD placement. The patient does not recall anything about the IUD and she is freshly out of the appendectomy. PAST MEDICAL HISTORY: None. PAST SURGICAL HISTORY: , cholecystectomy, tubal ligation. SOCIAL HISTORY: None. FAMILY HISTORY: None. OBSTETRIC AND GYNECOLOGIC HISTORY: Two normal vaginal delivery, two sections and tubal ligation. REVIEW OF SYSTEMS: Consistent with HPI. PHYSICAL EXAMINATION: VITAL SIGNS: Stable. The patient is awake and alert, in the recovery room. ABDOMEN: Soft, nontender. Surgical scar noted. PELVIC: Deferred due to current immediate postop status. No vaginal bleeding noted. EXTREMITIES: No clubbing, cyanosis or edema. IMPRESSION: * Status post appendectomy. * History of tubal ligation. * Intrauterine device in the uterus per ultrasound findings, which cannot be confirmed by the patient. RECOMMENDATION: The patient is advised to follow up outpatient to visualize the string coming out of the cervix or absence of it. Appears that the patient does not have any issue with the IUD and appears that the patient is perimenopausal. I have advised her to follow up outpatient. We will sign off. Thank you very much for this consultation. DO JOBY Ohara TID: [id number] RECEIPT: [id number]
[2024-12-01] MEDS: ACETAMINOPHEN/CODEINE#3 (300/30mg) TAB PO PRN (23:33)
[2024-12-02] VITALS (7 sets, daily range): BP systolic 97–113; BP diastolic 53–67; PULSE 60–81; RESP 18–20; TEMP 97.2–98.3; O2SAT 95–100
[2024-12-02 08:15] LABS: Basophils # (auto) 0 10 ^3/uL (0-0.2); Eosinophils # (auto) 0 10 ^3/uL (0-0.8); Lymphocytes # (auto) 0.9 10 ^3/uL (0.4-5.4); Monocytes # (auto) 0.3 10 ^3/uL (0-1.3); Neutrophils # (auto) 6.3 10 ^3/uL (1.6-8.6)
[2024-12-02 08:19] LABS: Hematocrit 30.3 % (36.0-46.0); Hemoglobin 9.9 g/dL (12.2-16.2); Lymphocytes % (auto) 11.9 % (10.0-50.0); Mean Corpuscular Hemoglobin 25.7 pg (28.0-32.0); Mean Corpuscular Hgb Conc. 32.7 g/dL (32.0-36.0); Mean Corpuscular Volume 78.5 fL (80.0-100.0); Monocytes % (auto) 4.4 % (0.0-12.0); Neutrophils % (auto) 83.7 % (37.0-80.0); Nucleated Red Blood Cells % 0.2 %; Platelet Count (auto) 254 10^3/uL (140-450); Red Blood Cells 3.86 10^6/uL (4.0-5.20); Red Cell Distribution Width 16.7 % (11.8-14.3); White Blood Cell 7.6 10^3/uL (4.4-10.8)
[2024-12-02 08:34] LABS: Alanine Aminotransferase 78 U/L (7-40); Alkaline Phosphatase 135 U/L (46-116); Anion Gap 6 (5-15); BUN/Creatinine Ratio 7.4 (10.0-20.0); Blood Urea Nitrogen < 5 mg/dL (9-23); Calcium 9.2 mg/dL (8.7-10.4); Carbon Dioxide 25 mmol/L (20-31); Chloride 107 mmol/L (98-107); Glucose 138 mg/dL (74-106); Potassium 3.8 mmol/L (3.5-5.1); Sodium 138 mmol/L (136-145)
[2024-12-02 08:35] LABS: Aspartate Aminotransferase 63 U/L (13-40); Bilirubin, Total 0.6 mg/dL (0.2-1.0); Total Protein 6.8 g/dL (5.7-8.2)
--- NOTE | 2024-12-02 09:21 | DVHPN2 ---
Subjective s/p Lap Appy. Seen and examined at bedside. POD1. C/o of surgical site pain. Encouraged to ambulate. Monitor LFTs Changes from previous H/P or p: No Changes Objective Vitals Vital Signs Date Time Temp Pulse Resp B/P (MAP) Pulse Ox O2 Delivery O2 Flow Rate FiO2 12/02/24 05:00 98.3 61 18 97/53 (68) 95 98.3 12/01/24 20:00 Nasal Cannula* 2 28 Intake/Output Intake and Output 12/02/24 07:00 Intake Total 1840 ml Balance 1840 ml Intake Oral 960 ml IV Total 880 ml # Voids 2 General Appearance: Alert, Oriented X3, Cooperative HEENT: Atraumatic Lungs: Clear to auscultation Cardiovascular: Regular rate, Normal S1, Normal S2 Abdomen: Other (Surgical dressing CDI) Psych/Mental Status: Mental status NL Medications Current Medications Medications Dose Ordered Sig/Sukumar Route Start Time Stop Time Status Last Admin Dose Admin Piperacillin Sod/ Tazobactam Sod 100 ml @ 25 mls/hr Q8HR IV 11/30/24 22:00 12/02/24 05:47 25 MLS/HR Potassium Chloride/Dextrose/ Sod Cl 1,000 ml @ 120 mls/hr Q8H20M IV 12/01/24 12:45 12/02/24 05:42 120 MLS/HR Hydromorphone HCl 1 mg Q4HPRN PRN IV 12/01/24 12:45 Acetaminophen/ Codeine Phosphate 1 tab Q4HP PRN PO 12/01/24 12:45 12/01/24 23:33 1 TAB Ondansetron HCl 4 mg Q4HPRN PRN IV 12/01/24 12:45 Pantoprazole Sodium 40 mg DAILY IV 12/01/24 13:49 12/01/24 14:40 40 MG Laboratory Results Laboratory Tests 12/02/24 07:34 Chemistry Test 12/02/24 07:34 Albumin 4.0 g/dL (3.2-4.8) Calcium Level 9.2 mg/dL (8.7-10.4) Total Protein 6.8 g/dL (5.7-8.2) LFT Test 12/02/24 07:34 Alanine Aminotransferase (ALT) 78 U/L (7-40) H Alkaline Phosphatase 135 U/L (46-116) H Aspartate Amino Transferase (AST) 63 U/L (13-40) H Total Bilirubin 0.6 mg/dL (0.2-1.0) Urinalysis Test 11/30/24 08:08 Urine Color Light-yellow (Yellow) Urine Clarity Clear (Clear) Urine pH 6.5 (5.0-9.0) Urine Specific [place] 1.023 (1.001-1.035) Urine Protein Negative (Negative) Urine Ketones Negative (Negative) Urine Blood 1+ /uL (Negative) H Urine Nitrite Negative (Negative) Urine Bilirubin Negative (Negative) Urine Urobilinogen Normal mg/dL (Negative) Urine Leukocyte Esterase Negative /uL (Negative) Urine RBC 10 /hpf (0 - 4) Urine WBC 1 /hpf (0 - 5) Urine Squamous Epithelial Cells Few /hpf (<5) Urine Bacteria None seen /hpf (None Seen) Urine Mucus Few (None Seen) Urine Glucose Normal mg/dL (Normal) Urine Test Negative (Negative) Assessment/Plan Assessment/Plan Acute abdominal pain due to Acute appendicitis - Surgical Cx, cont Abx. 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
[2024-12-02] MEDS ORDERED: ROCURONIUM 10MG/ML 10ML VIAL IV ONE (11:49)
--- NOTE | 2024-12-02 13:22 | DVHPN2 ---
Progress Note Date Seen: Dec 02, 2024 Medical Necessity Reason Pt with a Central, PICC or Fol: No Objective vital signs Vital Sign Date Time Temp Pulse Resp B/P (MAP) Pulse Ox O2 Delivery O2 Flow Rate FiO2 12/02/24 13:01 98.1 68 18 103/57 (72) 96 98.1 12/02/24 07:45 Room Air* 0 21 Total Intake and Output 12/01/24 12/01/24 12/02/24 15:00 23:00 07:00 Intake Total 200 ml 1280 ml 360 ml Balance 200 ml 1280 ml 360 ml medications Current Medications Medications Dose Ordered Sig/Sukumar Route Start Time Stop Time Status Last Admin Dose Admin Piperacillin Sod/ Tazobactam Sod 100 ml @ 25 mls/hr Q8HR IV 11/30/24 22:00 12/02/24 05:47 25 MLS/HR Potassium Chloride/Dextrose/ Sod Cl 1,000 ml @ 120 mls/hr Q8H20M IV 12/01/24 12:45 12/02/24 05:42 120 MLS/HR Hydromorphone HCl 1 mg Q4HPRN PRN IV 12/01/24 12:45 Acetaminophen/ Codeine Phosphate 1 tab Q4HP PRN PO 12/01/24 12:45 12/01/24 23:33 1 TAB Ondansetron HCl 4 mg Q4HPRN PRN IV 12/01/24 12:45 Pantoprazole Sodium 40 mg DAILY IV 12/01/24 13:49 12/02/24 09:50 40 MG laboratory and microbiology Laboratory Tests 12/02/24 07:34 Test 12/02/24 07:34 Range/Units Serum Glucose 138 H 74-106 mg/dL Problem List/Assessment/Plan Problem List/Assessment/Plan 12/01/24 still c/o pain, has exquisite tenderness at c Domenic's point, rebound tenderness, CT indicates appendicitis, laparoscopic possibly open appendectomy, risks and complications explained in detail, explained to that i am NOT 100% sure that she has appendicitis, but I do not want to risk rupture of the appendix 12/02/24 FEELS MUCH BETTER, ABDOMEN SOFT, NON DISTENDED, WOUNDS CLEAN AND WELL APPROXIMATED, WILL ADVANCE DIET, SHE CAN BE DISCHARGED TOMORROW Plan discussed with: Patient JEISON MONAE MD Dec 02, 2024 13:22
[2024-12-03 01:00] VITALS: BP 104/57; PULSE 70; RESP 20; TEMP 97.7; O2SAT 96
[2024-12-03 05:00] VITALS: BP 114/53; PULSE 64; RESP 20; TEMP 97.3; O2SAT 98
[2024-12-03 06:47] LABS: Albumin 3.7 g/dL (3.2-4.8); Anion Gap 5 (5-15); BUN/Creatinine Ratio 9.3 (10.0-20.0); Bilirubin, Total 0.4 mg/dL (0.2-1.0); Calcium 9.1 mg/dL (8.7-10.4); Carbon Dioxide 25 mmol/L (20-31); Glucose 97 mg/dL (74-106); Potassium 3.9 mmol/L (3.5-5.1); Sodium 139 mmol/L (136-145); Total Protein 6.3 g/dL (5.7-8.2)
[2024-12-03 06:48] LABS: Alanine Aminotransferase 71 U/L (7-40); Alkaline Phosphatase 117 U/L (46-116); Aspartate Aminotransferase 56 U/L (13-40); Blood Urea Nitrogen 7 mg/dL (9-23); Chloride 109 mmol/L (98-107)
[2024-12-03 08:00] VITALS: PULSE 74; RESP 18; O2SAT 99
[2024-12-03 08:02] LABS: Basophils # (auto) 0 10 ^3/uL (0-0.2); Basophils % (auto) 0.6 % (0.0-2.0); Eosinophils # (auto) 0.2 10 ^3/uL (0-0.8); Eosinophils % (auto) 2.1 % (0.0-7.0); Hematocrit 30.3 % (36.0-46.0); Hemoglobin 9.7 g/dL (12.2-16.2); Lymphocytes # (auto) 2.8 10 ^3/uL (0.4-5.4); Lymphocytes % (auto) 38.4 % (10.0-50.0); Mean Corpuscular Hemoglobin 25.6 pg (28.0-32.0); Mean Corpuscular Volume 80.1 fL (80.0-100.0); Monocytes # (auto) 0.5 10 ^3/uL (0-1.3); Monocytes % (auto) 6.7 % (0.0-12.0); Neutrophils # (auto) 3.8 10 ^3/uL (1.6-8.6); Neutrophils % (auto) 52.2 % (37.0-80.0); Nucleated Red Blood Cells % 0.2 %; Platelet Count (auto) 225 10^3/uL (140-450); Red Blood Cells 3.79 10^6/uL (4.0-5.20); Red Cell Distribution Width 17.3 % (11.8-14.3); White Blood Cell 7.2 10^3/uL (4.4-10.8)
[2024-12-03 08:16] LABS: Platelet Estimate Adequate
[2024-12-03 09:00] VITALS: BP 120/80; PULSE 74; RESP 18; TEMP 98; O2SAT 99
--- NOTE | 2024-12-03 10:49 | DVHPN2 ---
Progress Note Date Seen: Dec 03, 2024 Medical Necessity Reason Pt with a Central, PICC or Fol: No Objective vital signs Vital Sign Date Time Temp Pulse Resp B/P (MAP) Pulse Ox O2 Delivery O2 Flow Rate FiO2 12/03/24 09:00 98.0 74 18 120/80 (93) 99 98.0 12/02/24 20:00 Room Air* 0 21 Total Intake and Output 12/02/24 12/02/24 12/03/24 15:00 23:00 07:00 Intake Total 615 ml 1135 ml 550 ml Output Total 300 ml Balance 615 ml 1135 ml 250 ml medications Current Medications Medications Dose Ordered Sig/Sukumar Route Start Time Stop Time Status Last Admin Dose Admin Piperacillin Sod/ Tazobactam Sod 100 ml @ 25 mls/hr Q8HR IV 11/30/24 22:00 12/03/24 05:37 25 MLS/HR Potassium Chloride/Dextrose/ Sod Cl 1,000 ml @ 120 mls/hr Q8H20M IV 12/01/24 12:45 12/03/24 06:28 120 MLS/HR Hydromorphone HCl 1 mg Q4HPRN PRN IV 12/01/24 12:45 Acetaminophen/ Codeine Phosphate 1 tab Q4HP PRN PO 12/01/24 12:45 12/03/24 09:20 1 TAB Ondansetron HCl 4 mg Q4HPRN PRN IV 12/01/24 12:45 Pantoprazole Sodium 40 mg DAILY IV 12/01/24 13:49 12/02/24 09:50 40 MG laboratory and microbiology Laboratory Tests 12/03/24 05:45 Test 12/03/24 05:45 Range/Units Serum Glucose 97 74-106 mg/dL Problem List/Assessment/Plan Problem List/Assessment/Plan 12/01/24 still c/o pain, has exquisite tenderness at c Domenic's point, rebound tenderness, CT indicates appendicitis, laparoscopic possibly open appendectomy, risks and complications explained in detail, explained to that i am NOT 100% sure that she has appendicitis, but I do not want to risk rupture of the appendix 12/02/24 FEELS MUCH BETTER, ABDOMEN SOFT, NON DISTENDED, WOUNDS CLEAN AND WELL APPROXIMATED, WILL ADVANCE DIET, SHE CAN BE DISCHARGED TOMORROW 12/03/24 c/o shoulder pain, no nausea, no vomiting, wounds ok, abdomen soft, non distended,appropriately tender, OK to discharge from surgical point of view Plan discussed with: Patient, Spouse JEISON MONAE MD Dec 03, 2024 10:49
[2024-12-03 13:00] VITALS: BP 117/78; PULSE 68; RESP 18; TEMP 97.5; O2SAT 97
[2024-12-03] MEDS: ONDANSETRON HCL 4 MG/2 ML VIAL IV ONE (14:37)
[2024-12-03] MEDS ORDERED: TRAM-626 PO (15:05)
--- NOTE | 2024-12-03 15:10 | DVHDS2 ---
Discharge Summary Date of Admission Nov 30, 2024 at 18:43 Date of Discharge: Dec 03, 2024 Admitting Diagnosis Appendicitis. Labs/Diagnostic Data: Laboratory Results Test 12/03/24 05:45 12/01/24 06:13 11/30/24 08:08 White Blood Count 7.2 10^3/uL (4.4-10.8) Red Blood Count 3.79 10^6/uL (4.0-5.20) Hemoglobin 9.7 g/dL (12.2-16.2) Hematocrit 30.3 % (36.0-46.0) Mean Corpuscular Volume 80.1 fL (80.0-100.0) Mean Corpuscular Hemoglobin 25.6 pg (28.0-32.0) Mean Corpuscular Hemoglobin Concent 32.0 g/dL (32.0-36.0) Red Cell Distribution Width 17.3 % (11.8-14.3) Platelet Count 225 10^3/uL (140-450) Mean Platelet Volume 8.5 fL (6.9-10.8) Neutrophils (%) (Auto) 52.2 % (37.0-80.0) Lymphocytes (%) (Auto) 38.4 % (10.0-50.0) Monocytes (%) (Auto) 6.7 % (0.0-12.0) Eosinophils (%) (Auto) 2.1 % (0.0-7.0) Basophils (%) (Auto) 0.6 % (0.0-2.0) Neutrophils # (Auto) 3.8 10 ^3/uL (1.6-8.6) Lymphocytes # (Auto) 2.8 10 ^3/uL (0.4-5.4) Monocytes # (Auto) 0.5 10 ^3/uL (0-1.3) Eosinophils # (Auto) 0.2 10 ^3/uL (0-0.8) Basophils # (Auto) 0 10 ^3/uL (0-0.2) Nucleated Red Blood Cells 0.2 % Platelet Estimate Adequate Sodium Level 139 mmol/L (136-145) Potassium Level 3.9 mmol/L (3.5-5.1) Chloride Level 109 mmol/L (98-107) Carbon Dioxide Level 25 mmol/L (20-31) Anion Gap 5 (5-15) Blood Urea Nitrogen 7 mg/dL (9-23) Creatinine 0.75 mg/dL (0.550-1.02) Glomerular Filtration Rate Calc 101 mL/min (>90) BUN/Creatinine Ratio 9.3 (10.0-20.0) Serum Glucose 97 mg/dL (74-106) Calcium Level 9.1 mg/dL (8.7-10.4) Total Bilirubin 0.4 mg/dL (0.2-1.0) Aspartate Amino Transferase (AST) 56 U/L (13-40) Alanine Aminotransferase (ALT) 71 U/L (7-40) Alkaline Phosphatase 117 U/L (46-116) Total Protein 6.3 g/dL (5.7-8.2) Albumin 3.7 g/dL (3.2-4.8) Prothrombin Time 10.6 sec (9.3-11.8) Prothrombin Time INR 1.00 (0.9-1.15) Activated Partial Thromboplast Time 27.1 SEC (24.5-34.5) Urine Color Light-yellow (Yellow) Urine Clarity Clear (Clear) Urine pH 6.5 (5.0-9.0) Urine Specific [place] 1.023 (1.001-1.035) Urine Protein Negative (Negative) Urine Ketones Negative (Negative) Urine Blood 1+ /uL (Negative) Urine Nitrite Negative (Negative) Urine Bilirubin Negative (Negative) Urine Urobilinogen Normal mg/dL (Negative) Urine Leukocyte Esterase Negative /uL (Negative) Urine RBC 10 /hpf (0 - 4) Urine WBC 1 /hpf (0 - 5) Urine Squamous Epithelial Cells Few /hpf (<5) Urine Bacteria None seen /hpf (None Seen) Urine Mucus Few (None Seen) Urine Glucose Normal mg/dL (Normal) Urine Test Negative (Negative) Other Laboratory Tests 12/03/24 05:45 Brief Hx & Hospital Course: 44-year-old female with no PMHx presents with a chief complaint of abdominal pain x onset last night with associated nausea. Patient states that her pain is localized to her RLQ, radiates diffusely and to her back, and describes as aching/cramping sensation. Patient reports that she has had this pain before in the past and was evaluated via ultrasound and states that her "IUD was in the endometrial cavity". Patient endorses nausea, but denies any active vomiting or diarrhea. Patient denies rectal bleeding, or hematemesis. No other symptoms or modifying factors present at this time. Patient underwent Appendectomy. Has LFT elevations, will need to have CMP done in 3-[address] Mahin Gillette (PCP). See Dr. Yeh in 2 weeks Operations or Procedures Attending Phy: PILI JARRELL MD DATE OF SURGERY: 12/01/2024 PREOPERATIVE DIAGNOSIS: Appendicitis. POSTOPERATIVE DIAGNOSIS: Appendicitis. SURGEON: Magnus Yeh MD PUMP SERVICER HELPER: Cj Cannon. ANESTHESIA: General endotracheal. ANESTHESIOLOGIST: Dr. Roque. PROCEDURES: Laparoscopy, laparoscopic appendectomy. DESCRIPTION OF PROCEDURE: Under general endotracheal anesthesia, with the patient's skin prepped and draped, an infraumbilical incision was made and Veress needle inserted into the abdominal cavity in order to establish pneumoperitoneum to 15 mmHg pressure by insufflation with carbon dioxide. With the abdomen fully distended, the needle was removed and replaced with a 5 mm trocar port through which a 0-degree viewing laparoscope was inserted and under direct vision, additional 5 and 10 mm ports inserted into the abdominal cavity. Laparoscopy was performed, which was hampered by the patient's morbid obesity, however, no obvious unexpected pathology in the viscera was encountered other than a densely adherent uterus adhering to the anterior abdominal wall in the right lower quadrant. An attempt at the uterus from the abdominal wall was unsuccessful, which was suggestive of possibly an extruding IUD causing the adhesion of the uterus. For this reason, I had requested a PROPERTY ADJUSTER consult postoperatively. I did not call for a PROPERTY ADJUSTER surgeon intraoperatively because the patient was not consented for hysteroscopy and did not have a vaginal prep. Subsequently, the appendix was found in a retrocecal position with the distal half of the appendix obviously inflamed. Due to the patient's obesity, it was difficult to manipulate and place the appendix into an accessible position. However, with meticulous dissection, I was able to remove the appendix from the retrocecal position, placed it on tension and traced to the confluence with the cecum. At the confluence with the cecum, the very fatty mesoappendix and the appendix were divided at the base with an Endo-DARRYL stapler. The fully mobilized appendix was then removed from the peritoneal cavity by placement in a specimen extraction bag removing it through the 10 mm port site. At this point, the right lower quadrant was irrigated, irrigant was aspirated. Hemostasis was meticulously inspected and accomplished. The patient had no bleeding at the time of termination of the procedure, either from the appendicectomy site, the port sites or from the site of attempted lysis of the adhesion of the uterus to the abdominal wall. The abdomen was again irrigated, irrigant was aspirated. Instrumentation was withdrawn. Pneumoperitoneum was evacuated and then wounds approximated using Monocryl sutures and the wounds were approximated using metallic skin kimmy. The patient remained stable throughout the procedure, left the operating room following an accurate needle and sponge count. The patient's daughter was thoroughly informed by phone at [phone]. Subsequent to the phone call, I also called Dr. Charlton to render a gynecologic opinion. 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 Mahin Gillette in [address] Yeh in 2 weeks Medications: Tramadol PRN Discharge Statement: "Patient was advised to return to the ER or call 911 if any headaches, dizziness, shortness of breath, chest pain, abdominal pain, bleeding, fevers, or worsening of medical condition. Patient was counseled about treatment plan, medications, possible side effects, patientverbalized understanding. All questions were answered to the best of my ability. This discharge took greater then 30 minutes in planning, reviewing documentation, counseling the patient, and discussing with other team members." ASSESSMENT ASSESSMENT Assessment Date of Service: Dec 03, 2024 Billing Provider: PILI JARRELL MD Common Visit Codes: 56801-LRR/OBS DISCH DAY >30min PILI JARRELL MD Dec 03, 2024 15:09
[2024-12-03 17:07] VITALS: BP 113/74; PULSE 67; RESP 19; TEMP 98.1; O2SAT 96
--- NOTE | 2024-12-03 19:56 | PRN ---
HUMBERTO JOSHI RESIDENT 12/03/246: Misceleneous Note Note Note Spoke with the patient and address her concern. Patient is now feeling better . No other complaints PILI JARRELL MD 12/03/242231: HUMBERTO JOSHI RESIDENT Dec 03, 2024 19:56 PILI JARRELL MD Dec 03, 2024 22:32
== END 2024-12-03 20:38 | disposition home or self-care (01) | DRG 234 ==
LOC: ER 08:02 → OVERFLOW 18:43 → EAST 18:48
PROVIDERS: ADMIT Internal Medicine; ATTEND Internal Medicine
PROC: 0DTJ4ZZ Resection of Appendix, Percutaneous Endoscopic Approach (ICD-10-PCS; principal; 2024-12-01 10:56)
DX: K35.80 Unspecified acute appendicitis (principal); E66.01 Morbid (severe) obesity due to excess calories; K66.0 Peritoneal adhesions (postprocedural) (postinfection); R74.01 Elevation of levels of liver transaminase levels; N73.6 Female pelvic peritoneal adhesions (postinfective); Z98.51 Tubal ligation status; Z90.49 Acquired absence of other specified parts of digestive tract; Z98.891 History of uterine scar from previous surgery; Z68.41 Body mass index [BMI] 40.0-44.9, adult
CPT/HCPCS: 36415; 74176; 76856; 80048; 80053; 81001; 81025; 85025; 85610; 85730; 86850; 86900; 86901; G0378; J0330; J1100; J2250; J2405; J2470; J2543; J2704; J3490

== ENCOUNTER 2024-12-21 21:06 | Emergency (ER) | payer MEDICAID ==
[~2024-12-21] VITALS: Ht 160 cm; Wt 104.5 kg
[~2024-12-21 21:06] MED LIST changes: +LATA0.008 EACHEYE; -PRED20TA2 PO; +TRAM-626 PO
[2024-12-21 21:28] VITALS: BP 147/93; PULSE 86; RESP 20; O2SAT 96
--- NOTE | 2024-12-21 22:21 | ED.PDOC ---
SOB-HPI HPI Comments 44-year-old female presents to ER with complaints of flu-like symptoms x3 days. Patient reports he has been experiencing intermittent body aches/chills, frontal headache and dry cough x3 days. Denies any pain. Patient also reports intermittent wheezing/shortness of breath that she states occurs at night, denying any current wheezing/shortness of breath. Patient presents to ER ambulatory on arrival, with steady gait, in no distress. Denies fever, chest pain, hemoptysis, sore throat, nausea/vomiting or any further symptoms/complaints Chief Complaint: Flu like Time Seen by MD: 21:51 Primary Care Provider: UNKNOWN Reviewed notes: Nurses Notes, Medications, Allergies Information Source: Patient Mode of Arrival: Ambulatory Past Medical History PAST MEDICAL HISTORY: Denies Surgical History: Appendectomy, Cholecystectomy, GRAIN GRADER History: Denies all GRAIN GRADER Hx Family History Family History: Unknown Social History Smoker: Non-Smoker Alcohol: Denies ETOH Use Drugs: Denies Drug Use Lives In: Home Constitutional: reports: others (As stated in HPI) EENTM: denies: blurred vision, double vision, ear bleeding, ear discharge, ear drainage, ear pain, ear ringing, eye pain, eye redness, hearing loss, mouth pain, mouth swelling, nasal discharge, nose bleeding, nose congestion, nose pain, photophobia, tearing, throat pain, throat swelling, voice changes, others Respiratory: reports: others (As stated in HPI) Cardiovascular: denies: chest pain, dizzy spells, diaphoresis, Dyspnea on exertion, edema, irregular heart beat, left arm pain, lightheadedness, palpitations, PND, syncope, others Gastrointestinal: denies: abdomen distended, abdominal pain, blood streaked bowels, constipated, diarrhea, dysphagia, difficulty swallowing, hematemesis, m mima, nausea, poor appetite, poor fluid intake, rectal bleeding, rectal pain, vomiting, others Genitourinary: denies: abnormal vagina bleeding, burning, dyspareunia, dysuria, flank pain, frequency, hematuria, incontinence, pain, , vagina discharge, urgency, others Neurological: denies: dizziness, fainting, headache, left sided numbness, left sided weakness, numbness, paresthesia, pre-existing deficit, right sided numbness, right sided weakness, seizure, speech problems, tingling, tremors, weakness, others Musculoskeletal: denies: back pain, gout, joint pain, joint swelling, muscle pain, muscle stiffness, neck pain, others Integumetry: denies: bruises, change in color, change in hair/nails, dryness, laceration, lesions, lumps, rash, wounds, others Allergic/Immunocompromised: denies: Difficulty Healing, Frequent Infections, Hives, Itching, others Hematologic/Lymphatic: denies: anemia, blood clots, easy bleeding, easy bruising, swollen glands, others Endocrine: denies: excessive hunger, excessive sweating, excessive thirst, excessive urination, flushing, intolerance to cold, intolerance to heat, unexpla ined weight gain, unexplained weight loss, others Psychiatric: denies: anxiety, bipolar disorder, depression, hopeless, panic disorder, schizophrenia, sleepless, suicidal, others Physical Exam General Appearance: No Apparent Distress HEENT: Normal ENT Inspection, PERRL/EOMI, Pharynx Normal, TMs Normal Neck: Full Range of Motion, Non-Tender, Normal Respiratory: Chest Non-Tender, Lungs Clear, No Accessory Muscle Use, No Respiratory Distress, Normal Breath Sounds Cardiovascular: No Murmur, No Gallop, Regular Rate/Rhythm Breast Exam: Deferred Gastrointestinal: NOT DONE Genitalia: Deferred Pelvic: Deferred Rectal: Deferred Extremities: No calf tenderness, Normal capillary refill, Normal range of motion Neurologic: Alert, packing attendant II-XII nml as Tested, No Motor Deficits, Normal Affect, Normal Mood, No Sensory Deficits Cerebellar Function: Normal Reflexes: Normal Skin: Dry, Normal Color, Warm Peripheral Pulses: 2+ Radial (R), 2+ Radial (L), 2+ Brachial (R), 2+ Brachial (L) Lymphatic: No Adenopathy Was a procedure done? Was a procedure done?: No Sedation Sedation?: No Differential Dx Differential Diagnosis: Pneumonia, Pulmonary Embolism, Respiratory Distress, Other (COVID-19, INFLUENZA) X-Ray, Labs, Meds, VS Vital Signs Date Time Temp Pulse Resp B/P (MAP) Pulse Ox O2 Delivery O2 Flow Rate FiO2 12/21/24 22:18 Room Air* 0 21 12/21/24 21:28 99.2 86 20 147/93 (111) 96 Lab Test 12/21/24 21:32 Range/Units Influenza Type A Antigen Negative Negative Influenza Type B Antigen Negative Negative SARS-CoV-2 Antigen (Rapid) Negative NEGATIVE SWAB RESULTS REVIEWED-NEGATIVE PATIENT ASYMPTOMATIC PRIOR TO DISCHARGE ADVISED TO DRINK PLENTY OF FLUIDS ADVISED TO FOLLOW UP WITH PCP IN 1-2 DAYS PATIENT VERBALIZED UNDERSTANDING AND AGREEABLE WITH CURRENT PLAN OF CARE ADVISED TO RETURN TO ER IMMEDIATELY IF SYMPTOMS WORSEN Time of 1ST Reevaluation: 22:20 Reevaluation 1ST: N/A Patient Education/Counseling: Diagnosis, Treatment, Prognosis, Need For Follow Up Family Education/Counseling: No Family Present Departure 1 Departure Time of Disposition: 23:32 Impression: Primary Impression: Viral URI Disposition: HOME / SELF CARE / HOMELESS Condition: Stable e-Prescriptions Albuterol Sulfate (VENTOLIN MDI) 90 Mcg Ih 2 PUFF IN Q4HPRN, #1 INH 0 Refills Prov: MILAD PHELPS 12/21/24 Discharged With: Self Critical Care Note Critical Care Time?: No Stability Stability form required: No Heart Score Heart Score: Heart Score Response (Comments) Value History N/A 0 EKG N/A 0 Age N/A 0 Risk Factors N/A 0 Troponin N/A 0 Total 0 MILAD PHELPS Dec 21, 2024 22:21
[2024-12-21 23:24] LABS: COVID19 ANTIGEN SOFIA FIA NEGATIVE (NEGATIVE)
[2024-12-21 23:28] LABS: Rapid Influenza A Negative (Negative); Rapid Influenza B Negative (Negative)
[2024-12-21] MEDS ORDERED: ALBUAER3 IN (23:33)
== END 2024-12-21 23:43 | disposition home or self-care (01) ==
LOC: ER 21:06
DX: J06.9 Acute upper respiratory infection, unspecified (principal); B97.89 Other viral agents as the cause of diseases classified elsewhere; R50.9 Fever, unspecified; R51.9 Headache, unspecified; Z90.49 Acquired absence of other specified parts of digestive tract; Z20.822 Contact with and (suspected) exposure to COVID-19
CPT/HCPCS: 36415; 87426; 87804